=== PATIENT | male | born 1955 | race Caucasian/White ===

== ENCOUNTER → 2022-09-29 | Outpatient (CLI) | payer MEDICARE, BC ==
[~2022-09-29] MED LIST: ATEN50 PO; ATOR10; ATOR40TA; CARDURA; COZAAR; DOXA4; ENOX100I SQ; METO100ER; TELM80; WARF5 PO
== END ==
LOC: LAB 15:18 → LAB SHORT 15:18
DX: R31.9 Hematuria, unspecified (principal)
CPT/HCPCS: 87077; 87086; 87186

== ENCOUNTER 2023-03-26 13:06 | Emergency (ER) | payer MEDICARE, BC ==
[~2023-03-26] VITALS: Ht 182.9 cm; Wt 74.8 kg
[2023-03-26 13:55] LABS: Source, Urine Clean Catch
[2023-03-26 14:00] LABS: Appearance, Urine Clear (Clear); Bilirubin, Urine Neg (Neg); Blood, Urine Neg (Neg); Color, Urine Yellow (P-Yellow); Glucose Qualitative, Urine Neg (Neg); Ketones, Urine Neg (Neg); Leukocyte Esterase, Urine Neg (Neg); Nitrite, Urine Neg (Neg); Protein, Urine Neg (Neg); Specific Gravity, Urine 1.015 (1.003-1.022); Urobilinogen, Urine 2+ (Normal); pH, Urine 6.5 (5.0-8.0)
[2023-03-26 14:08] LABS: BASOPHILS ABSOLUTE AUTO 0.03 K/mm3 (0.00-0.23); BASOPHILS PERCENT AUTO 1 % (0-2); EOSINOPHILS ABSOLUTE AUTO 0.04 K/mm3 (0.00-0.68); EOSINOPHILS PERCENT AUTO 1 % (0-6); Hematocrit 32.7 % (37.0-53.0); Hemoglobin 9.8 g/dL (13.5-17.5); IMMATURE GRAN ABSOLUTE AUTO 0.03 K/mm3 (0.00-0.10); IMMATURE GRAN PERCENT AUTO 1 % (0-1); LYMPHOCYTES ABSOLUTE AUTO 1.25 K/mm3 (0.84-5.20); LYMPHOCYTES PERCENT AUTO 19 % (21-46); MONOCYTES PERCENT AUTO 9 % (4-13); Mean Corpuscular Volume 83 fL (80-100); NEUTROPHILS ABSOLUTE AUTO 4.66 K/mm3 (1.96-9.15); NEUTROPHILS PERCENT AUTO 70 % (41-73); Platelet Count 221 K/mm3 (150-400); RDW Coefficient Variation 15.7 % (11.7-14.2); RDW Standard Deviation 47.5 fL (35.1-46.3); Red Blood Cell Count 3.92 M/mm3 (4.30-5.90); White Blood Cell Count 6.61 K/mm3 (4.00-11.30)
[2023-03-26 14:16] LABS: International Normalized Ratio 1.14; Prothrombin Time Results 11.9 Sec (9.7-11.5)
[2023-03-26] MEDS ORDERED: METOPROLOL SUCC25 MG PO (14:18)
[2023-03-26] MEDS ORDERED: CARBIDOPA-LEVO1 EA19 PO (14:19)
[2023-03-26] MEDS ORDERED: FLECAINIDE ACE150 M1 PO (14:19)
[2023-03-26] MEDS ORDERED: ATORVASTATIN CA20 MG PO (14:19)
[2023-03-26 14:20] LABS: Albumin, Blood 3.4 g/dL (3.4-5.0); Bilirubin, Total 0.5 mg/dL (0.1-1.0); Calcium, Blood 8.7 mg/dL (8.5-10.1); Creatinine, Blood 0.76 mg/dL (0.60-1.20); Globulin, Blood 3.5 g/dL (2.2-4.0); Potassium, Blood 4.2 mmol/L (3.5-5.5); Total Protein, Blood 6.9 g/dL (6.4-8.2)
[2023-03-26] MEDS ORDERED: PANTOPRAZOLE SO40 M2 PO (14:20)
[2023-03-26 16:26] VITALS: BP 123/98
== END 2023-03-26 16:26 | disposition home or self-care (01) ==
LOC: ER 13:06
PROVIDERS: Emergency Medicine
DX: R41.82 Altered mental status, unspecified (principal); G20.A1 Parkinson's disease without dyskinesia, without mention of fluctuations; F02.80 Dementia in other diseases classified elsewhere, unspecified severity, without behavioral disturbance, psychotic disturbance, mood disturbance, and anxiety; D64.9 Anemia, unspecified; Z79.899 Other long term (current) drug therapy
CPT/HCPCS: 70450; 80053; 81003; 85025; 85610; 93005; 93010; 96360; 99285-25; J7030

== ENCOUNTER 2023-05-12 15:09 | Emergency (ER) | payer OTHER, MEDICARE, BC ==
[~2023-05-12] VITALS: Ht 177.8 cm; Wt 72.6 kg
[~2023-05-12 15:09] MED LIST changes: +ATORVASTATIN CA20 MG PO; +CARBIDOPA-LEVO1 EA19 PO; +FLECAINIDE ACE150 M1 PO; +METOPROLOL SUCC25 MG PO; +PANTOPRAZOLE SO40 M2 PO
[2023-05-12 15:30] VITALS: BP 142/112
[2023-05-12] MEDS ORDERED: Norco 5-325 Ta1 EACH PO (16:37)
== END 2023-05-12 18:08 | disposition home or self-care (01) ==
LOC: ER 15:09
DX: S82.64XA Nondisplaced fracture of lateral malleolus of right fibula, initial encounter for closed fracture (principal); W01.0XXA Fall on same level from slipping, tripping and stumbling without subsequent striking against object, initial encounter; Z88.1 Allergy status to other antibiotic agents; Z79.899 Other long term (current) drug therapy
CPT/HCPCS: 29515; 70450; 73590; 73610; 93005; 93010; 99284-25; A9270

== ENCOUNTER 2023-07-20 15:41 | Emergency (ER) | payer MEDICARE, BC ==
[~2023-07-20] VITALS: Ht 182.9 cm; Wt 78.0 kg
[~2023-07-20 15:41] MED LIST changes: +Norco 5-325 Ta1 EACH PO
[2023-07-20 16:54] VITALS: BP 138/84
[2023-07-20] MEDS ORDERED: Acetaminophen 500 MG Tab PO ONE (18:05)
== END 2023-07-20 18:39 | disposition home or self-care (01) ==
LOC: ER 15:41
DX: S20.211A Contusion of right front wall of thorax, initial encounter (principal); S09.90XA Unspecified injury of head, initial encounter; S40.811A Abrasion of right upper arm, initial encounter; G20.A1 Parkinson's disease without dyskinesia, without mention of fluctuations; G30.9 Alzheimer's disease, unspecified; F02.80 Dementia in other diseases classified elsewhere, unspecified severity, without behavioral disturbance, psychotic disturbance, mood disturbance, and anxiety; Z79.899 Other long term (current) drug therapy; Z88.1 Allergy status to other antibiotic agents; Y93.K1 Activity, walking an animal
CPT/HCPCS: 70450; 71046; 72125; 99284-25; A9270

== ENCOUNTER → 2023-08-29 | Outpatient (CLI) | payer MEDICARE, BC | LOC: LAB SHORT 17:19 → LAB 17:19 | DX: R31.0 Gross hematuria (principal) | CPT/HCPCS: 87086 ==

== ENCOUNTER → 2023-12-31 | Outpatient (CLI) | payer MEDICARE, BC | END | disposition home or self-care (01) | LOC: LAB SHORT 12:40 → LAB 12:40 | DX: R30.0 Dysuria (principal) | CPT/HCPCS: 87086 ==

== ENCOUNTER 2024-01-18 17:29 | Emergency (ER) | payer MEDICARE, BC, OTHER ==
[~2024-01-18] VITALS: Ht 182.9 cm; Wt 77.1 kg
[2024-01-18 18:59] LABS: Source, Urine Clean Catch
[2024-01-18 19:03] LABS: Appearance, Urine Clear (Clear); Bilirubin, Urine Neg (Neg); Blood, Urine Neg (Neg); Color, Urine Pale Yellow (P-Yellow); Glucose Qualitative, Urine Neg (Neg); Ketones, Urine Neg (Neg); Leukocyte Esterase, Urine Neg (Neg); Nitrite, Urine Neg (Neg); Protein, Urine Neg (Neg); Urobilinogen, Urine NORM (Normal)
[2024-01-18] MEDS ORDERED: ELIQUIS5 M2 PO (19:39)
[2024-01-18 19:44] LABS: BASOPHILS ABSOLUTE AUTO 0.04 K/mm3 (0.00-0.23); BASOPHILS PERCENT AUTO 1 % (0-2); EOSINOPHILS ABSOLUTE AUTO 0.09 K/mm3 (0.00-0.68); EOSINOPHILS PERCENT AUTO 1 % (0-6); Hematocrit 30.9 % (37.0-53.0); Hemoglobin 9.1 g/dL (13.5-17.5); IMMATURE GRAN ABSOLUTE AUTO 0.02 K/mm3 (0.00-0.10); IMMATURE GRAN PERCENT AUTO 0 % (0-1); LYMPHOCYTES ABSOLUTE AUTO 1.66 K/mm3 (0.84-5.20); LYMPHOCYTES PERCENT AUTO 25 % (21-46); MONOCYTES ABSOLUTE AUTO 0.54 K/mm3 (0.16-1.47); MONOCYTES PERCENT AUTO 8 % (4-13); Mean Corpuscular HGB 23.3 pg (26.0-34.0); Mean Corpuscular HGB Conc 29.4 g/dL (31.5-36.5); Mean Corpuscular Volume 79 fL (80-100); Mean Platelet Volume 10.7 fL (9.1-12.4); NEUTROPHILS ABSOLUTE AUTO 4.22 K/mm3 (1.96-9.15); NEUTROPHILS PERCENT AUTO 64 % (41-73); Platelet Count 231 K/mm3 (150-400); RDW Coefficient Variation 17.6 % (11.7-14.2); RDW Standard Deviation 50.2 fL (35.1-46.3); Red Blood Cell Count 3.91 M/mm3 (4.30-5.90); White Blood Cell Count 6.57 K/mm3 (4.00-11.30)
[2024-01-18 20:02] LABS: Albumin, Blood 3.5 g/dL (3.4-5.0); Bilirubin, Total 0.8 mg/dL (0.1-1.0); Bun/Creatinine Ratio 30.5 (12.0-20.0); Calcium, Blood 8.6 mg/dL (8.5-10.1); Creatinine, Blood 0.72 mg/dL (0.60-1.20); Globulin, Blood 3.4 g/dL (2.2-4.0); Total Protein, Blood 6.9 g/dL (6.4-8.2)
[2024-01-18 20:10] LABS: Influenza A, PCR NEGATIVE (NEGATIVE); Influenza B, PCR NEGATIVE (NEGATIVE); Resp Syncytial Virus, PCR NEGATIVE (NEGATIVE); SARS-Cov-2 (COVID-19) PCR, MMC NEGATIVE (NEGATIVE)
[2024-01-18 20:15] VITALS: BP 147/100
== END 2024-01-18 20:35 | disposition home or self-care (01) ==
LOC: ER 17:29
PROVIDERS: Emergency Medicine
DX: F03.90 Unspecified dementia, unspecified severity, without behavioral disturbance, psychotic disturbance, mood disturbance, and anxiety (principal); F22 Delusional disorders; R40.4 Transient alteration of awareness; Z79.899 Other long term (current) drug therapy; Z88.1 Allergy status to other antibiotic agents
CPT/HCPCS: 0241U; 80053; 81003; 84484; 85025; 93005; 93010; 99285-25

== ENCOUNTER 2024-01-28 10:16 | Emergency (ER) | payer OTHER, MEDICARE, BC ==
[~2024-01-28] VITALS: Ht 182.9 cm; Wt 77.1 kg
[~2024-01-28 10:16] MED LIST changes: +ELIQUIS5 M2 PO
[2024-01-28 12:45] VITALS: BP 141/103
[2024-01-28] MEDS ORDERED: Acetaminophen/Codeine 300-30 mg PO ONE (13:35)
== END 2024-01-28 14:19 | disposition home or self-care (01) ==
LOC: ER 10:16
DX: S01.81XA Laceration without foreign body of other part of head, initial encounter (principal); S49.91XA Unspecified injury of right shoulder and upper arm, initial encounter; W01.0XXA Fall on same level from slipping, tripping and stumbling without subsequent striking against object, initial encounter
CPT/HCPCS: 12032; 70450; 72125; 73030; 99284-25